=== PATIENT | female | born 1960 | race Caucasian/White ===

== ENCOUNTER 2025-05-30 15:14 | Emergency (ER) | payer MEDICARE, OTHER ==
[~2025-05-30] VITALS: Wt 53.1 kg
[2025-05-30 16:21] LABS: BASO # 0.0 10*3/uL (0.0-0.1); BASO % 0.6 % (0.0-1.0); EOS # 0.1 10*3/uL (0.0-0.4); EOS % 1.6 % (1.0-4.0); MEAN CELL VOLUME 87.7 fl (81.0-99.0); MEAN CORPUSCULAR HGB 28.8 pg (27.0-31.0); MEAN PLATELET VOLUME 9.4 fl (9.6-12.3); MONO # 0.5 10*3/uL (0.1-1.0); MONO % 7.6 % (3.0-9.0); NEUT # 4.2 10*3/uL (2.3-7.9); NEUT % 62.8 % (47.0-73.0); NUCLEATED RED BLOOD CELL 0.0 % (0.0-0.0); NUCLEATED RED BLOOD CELL 0.0 10*3/uL (0.0-0.0); PLATELET COUNT AUTOMATED 320 10*3/uL (130-400); RED CELL DISTRI WIDTH 13.2 % (0-14.5)
[2025-05-30 16:43] LABS: BUN 7 mg/dl (9-23)
[2025-05-30 16:45] LABS: ETHYL ALCOHOL < 3.0 mg/dl (<3)
[2025-05-30] MEDS ORDERED: ACYCLOVIR400 MG PO (18:08)
[2025-05-30] MEDS ORDERED: ATIVAN2 MG/1 ML IM (18:09)
[2025-05-30] MEDS ORDERED: ATIVAN1 MG PO (18:10)
[2025-05-30] MEDS ORDERED: DEPAKOTE250 MG PO (18:11)
[2025-05-30] MEDS ORDERED: FLUVOXAMINE100 MG PO (18:12)
[2025-05-30] MEDS ORDERED: NATURE'S BLEND F1 MG PO (18:13)
[2025-05-30] MEDS ORDERED: BASE B,POLYETHYL1 GM MC (18:16)
[2025-05-30] MEDS ORDERED: KEPPRA500 MG PO (18:17)
[2025-05-30] MEDS ORDERED: MELATONIN3 MG PO (18:18)
[2025-05-30] MEDS ORDERED: NAMENDA-5 PO ×2 (18:20→18:21)
[2025-05-30] MEDS ORDERED: NORVASC5 MG PO (18:22)
[2025-05-30] MEDS ORDERED: NATURE'S BLEND100 M2 PO (18:23)
[2025-05-30] MEDS ORDERED: VITAMIN B12500 MC2 PO (18:24)
[2025-05-30] MEDS ORDERED: VITAMIN D3125 MC1 PO (18:26)
[2025-05-30] MEDS ORDERED: DULCOLAX10 M1 R (18:28)
[2025-05-30] MEDS ORDERED: FLEET ENEMA 13133 ML R (18:29)
[2025-05-30] MEDS ORDERED: MILK OF MA400 MG/53 PO (18:30)
== END 2025-05-30 17:12 ==
LOC: ED 15:14
PROVIDERS: Nurse Practitioner Family
DX: F63.81 Intermittent explosive disorder (principal); F03.90 Unspecified dementia, unspecified severity, without behavioral disturbance, psychotic disturbance, mood disturbance, and anxiety; Z79.899 Other long term (current) drug therapy

== ENCOUNTER 2025-06-15 16:50 | Inpatient (IN) | payer OTHER ==
[~2025-06-15 16:50] MED LIST: ACYCLOVIR400 MG PO; ATIVAN1 MG PO; ATIVAN2 MG/1 ML IM; BASE B,POLYETHYL1 GM MC; CLONAZEPAM0.5 M2 PO; DEPAKOTE SPRIN125 MG PO; DEPAKOTE250 MG PO; DULCOLAX10 M1 R; FLEET ENEMA 13133 ML R; FLUVOXAMINE100 MG PO; KEPPRA500 MG PO; MELATONIN3 MG PO; MEMANTINE HCL10 MG PO; MILK OF MA400 MG/53 PO; NAMENDA-5 PO; NATURE'S BLEND F1 MG PO; NATURE'S BLEND100 M2 PO; NORVASC5 MG PO; RIVASTIGMINE1 EAC2 T; VITAMIN B12500 MC2 PO; VITAMIN D3125 MC1 PO
[2025-06-15] MEDS ORDERED: LORazepam 1 MG TAB PO ONE (16:55)
[2025-06-15 17:27] LABS: BASO # 0.0 10*3/uL (0.0-0.1); BASO % 0.3 % (0.0-1.0); EOS # 0.1 10*3/uL (0.0-0.4); EOS % 1.1 % (1.0-4.0); MEAN CELL VOLUME 89.3 fl (81.0-99.0); MEAN CORPUSCULAR HGB 28.8 pg (27.0-31.0); MEAN PLATELET VOLUME 10.3 fl (9.6-12.3); MONO # 0.5 10*3/uL (0.1-1.0); MONO % 7.0 % (3.0-9.0); NEUT # 5.0 10*3/uL (2.3-7.9); NEUT % 66.3 % (47.0-73.0); NUCLEATED RED BLOOD CELL 0.0 % (0.0-0.0); NUCLEATED RED BLOOD CELL 0.0 10*3/uL (0.0-0.0); PLATELET COUNT AUTOMATED 266 10*3/uL (130-400); RED CELL DISTRI WIDTH 12.9 % (0-14.5)
[2025-06-15 17:34] LABS: URINE AMPHETAMINES Negative (1000ng/ml); URINE BARBITURATES Negative (200ng/ml); URINE BENZODIAZEPINES Negative (200ng/ml); URINE CANNABINOIDS (THC) Negative (50ng/ml); URINE COCAINE Negative (300ng/ml); URINE METHADONE Negative (300ng/ml); URINE OPIATES Negative (300ng/ml); URINE PHENCYCLIDINE Negative (25ng/ml)
[2025-06-15 17:34] LABS: BILIRUBIN Negative (Negative); BLOOD Negative (Negative); CLARITY Clear (Clear); COLOR Yellow (Yellow); KETONE Negative (Negative); LEUKO ESTERASE Trace (Negative); NITRITE Negative (Negative); PH 8.0 (4.5-8.0); SPECIFIC GRAVITY <= 1.005 (1.001-1.030); UROBILINOGEN 1.0 E.U./dl (0.0-1.0)
[2025-06-15 17:38] LABS: ACT PARTIAL THROMBO TIME 25.8 SECONDS (20.0-32.1)
[2025-06-15 17:39] VITALS: BP 126/87
[2025-06-15 17:40] LABS: BACTERIA 4+
[2025-06-15 17:46] LABS: BUN 8 mg/dl (9-23); CPK 87 U/L (34-171); SGPT/ALT < 7 U/L (5-49)
[2025-06-15 17:58] LABS: ETHYL ALCOHOL < 3.0 mg/dl (<3)
[2025-06-15 20:00] VITALS: BP 132/64
[2025-06-16] MEDS ORDERED: MG-AL HYDROXIDE/SIMETICONE 30 ML UDC PO PRN (00:20)
[2025-06-16] MEDS ORDERED: Menthol/Zinc Oxide 4 GM THIN T PRN (00:30)
[2025-06-16] MEDS ORDERED: ACETAMINOPHEN 325 MG TAB PO PRN (00:30)
[2025-06-16] MEDS ORDERED: hydrOXYzine hydrochloride 50 MG/ML VIAL IM PRN (00:35)
[2025-06-16] MEDS ORDERED: Water, Sterile 10 ML VIAL IM PRN (00:40)
[2025-06-16] MEDS ORDERED: LORazepam 1 MG TAB PO SCH (04:00)
[2025-06-16] MEDS ORDERED: LORazepam 1 MG TAB PO PRN ×3 (05:05→10:00)
[2025-06-16 06:49] LABS: BASO # 0.0 10*3/uL (0.0-0.1); BASO % 0.3 % (0.0-1.0); EOS # 0.2 10*3/uL (0.0-0.4); EOS % 2.6 % (1.0-4.0); MEAN CELL VOLUME 88.4 fl (81.0-99.0); MEAN CORPUSCULAR HGB 28.9 pg (27.0-31.0); MEAN PLATELET VOLUME 10.2 fl (9.6-12.3); MONO # 0.6 10*3/uL (0.1-1.0); MONO % 9.6 % (3.0-9.0); NEUT # 3.1 10*3/uL (2.3-7.9); NEUT % 47.4 % (47.0-73.0); NUCLEATED RED BLOOD CELL 0.0 % (0.0-0.0); NUCLEATED RED BLOOD CELL 0.0 10*3/uL (0.0-0.0); PLATELET COUNT AUTOMATED 234 10*3/uL (130-400); RED CELL DISTRI WIDTH 13.0 % (0-14.5)
[2025-06-16] MEDS ORDERED: BISACODYL 10 MG SUPP R PRN (06:50)
[2025-06-16 07:12] LABS: BUN 5 mg/dl (9-23); LDL CHOLESTEROL 135 mg/dL (9-159); VALPROIC ACID (DEPAKENE) 81.0 ug/ml (50-100)
[2025-06-16 07:30] LABS: SGPT/ALT < 7 U/L (5-49)
[2025-06-16 08:00] VITALS: BP 131/54
[2025-06-16 08:38] LABS: VITAMIN D, 25-HYDROXY 65.6 ng/mL (30-100)
[2025-06-16] MEDS ORDERED: DIVALPROEX SODIUM 125 MG CAP PO SCH ×2 (09:00)
[2025-06-16] MEDS ORDERED: Vitamin D 1,000 IU TAB (25 MCG) PO SCH (09:00)
[2025-06-16] MEDS ORDERED: FOLIC ACID 1 MG TAB PO SCH ×2 (09:00)
[2025-06-16] MEDS ORDERED: CYANOCOBALAMIN 500 MCG TAB PO SCH (09:00)
[2025-06-16] MEDS ORDERED: RIVASTIGMINE 13.3 MG/24 HR TDM T SCH ×2 (09:00)
[2025-06-16] MEDS ORDERED: Thiamine 100 MG TAB PO SCH (09:00)
[2025-06-16] MEDS ORDERED: PETROLATUM 42% 100 GM JAR T SCH (09:00)
[2025-06-16 20:08] VITALS: BP 113/75
[2025-06-16] MEDS ORDERED: DIVALPROEX (DR) 500 MG TAB PO SCH (21:00)
[2025-06-17 08:00] VITALS: BP 140/68
[2025-06-17] MEDS ORDERED: [UNRECOGNIZED DRUG - OTHER] PO SCH (09:00)
[2025-06-17] MEDS ORDERED: MED. FROM HOME 1 EACH EA PO SCH ×2 (09:00→21:00)
[2025-06-17 20:00] VITALS: BP 132/67
[2025-06-17] MEDS ORDERED: AUVELITY PO SCH (21:00)
[2025-06-18 08:59] VITALS: BP 112/64
[2025-06-18 18:46] LABS: BILIRUBIN Negative (Negative); BLOOD Negative (Negative); CLARITY Clear (Clear); COLOR Yellow (Yellow); KETONE Trace (Negative); LEUKO ESTERASE Trace (Negative); NITRITE Negative (Negative); PH 6.5 (4.5-8.0); SPECIFIC GRAVITY 1.010 (1.001-1.030); UROBILINOGEN 0.2 E.U./dl (0.0-1.0)
[2025-06-18 19:12] LABS: BACTERIA 1+; RBC 0-2 rbc/hpf (0-2)
[2025-06-18 20:00] VITALS: BP 110/61
[2025-06-19 07:45] VITALS: BP 111/48
[2025-06-19 20:00] VITALS: BP 142/69
[2025-06-20] MEDS ORDERED: HOMEMED PO (00:50)
[2025-06-20] MEDS ORDERED: DIVALPROEX SOD250 M1 PO (00:50)
[2025-06-20] MEDS ORDERED: RIVASTIGMINE1 EAC2 T (00:50)
[2025-06-20] MEDS ORDERED: CLONAZEPAM0.5 M2 PO (00:50)
[2025-06-20] MEDS ORDERED: MEMANTINE HCL10 MG PO (00:50)
[2025-06-20 08:00] VITALS: BP 104/73
[2025-06-20] MEDS ORDERED: DIVALPROEX SOD125 M1 PO ×2 (08:09→08:12)
[2025-06-20] MEDS ORDERED: DIVALPROEX SODIUM 125 MG CAP PO SCH (09:00)
== END 2025-06-20 10:00 | DRG 57 ==
LOC: ED 16:50 → 3N 18:44
PROVIDERS: Counselor Professional; Internal Medicine; ADMIT Psychiatry & Neurology Psychiatry; ATTEND Psychiatry & Neurology Psychiatry
PROC: GZHZZZZ Group Psychotherapy (ICD-10-PCS; principal; 2025-06-18)
PROC: GZ56ZZZ Individual Psychotherapy, Supportive (ICD-10-PCS; 2025-06-18)
DX: G30.9 Alzheimer's disease, unspecified (principal); F02.818 Dementia in other diseases classified elsewhere, unspecified severity, with other behavioral disturbance; E87.20 Acidosis, unspecified; F02.811 Dementia in other diseases classified elsewhere, unspecified severity, with agitation; F02.84 Dementia in other diseases classified elsewhere, unspecified severity, with anxiety; F02.83 Dementia in other diseases classified elsewhere, unspecified severity, with mood disturbance; K57.30 Diverticulosis of large intestine without perforation or abscess without bleeding; I10 Essential (primary) hypertension; R73.9 Hyperglycemia, unspecified; F63.81 Intermittent explosive disorder; Z79.899 Other long term (current) drug therapy; Z79.2 Long term (current) use of antibiotics; Z79.01 Long term (current) use of anticoagulants; F10.20 Alcohol dependence, uncomplicated; Y90.0 Blood alcohol level of less than 20 mg/100 ml